=== PATIENT | female | born 1995 | race Caucasian/White ===

== ENCOUNTER 2021-05-29 23:06 | Emergency (ER) | payer OTHER ==
[2021-05-29] MEDS ORDERED: PENICILLIN VK500 MG PO (23:20)
== END 2021-05-29 23:38 | disposition home or self-care (01) ==
LOC: ED 23:06
DX: K08.89 Other specified disorders of teeth and supporting structures (principal)

== ENCOUNTER 2021-08-20 09:29 | Emergency (ER) | payer OTHER ==
[~2021-08-20] VITALS: Ht 154.9 cm; Wt 49.9 kg
[~2021-08-20 09:29] MED LIST: PENICILLIN VK500 MG PO
[2021-08-20] MEDS ORDERED: MUCINEX DM 30/61 TAB PO (10:05)
== END 2021-08-20 10:08 | disposition home or self-care (01) ==
LOC: ED 09:29
DX: R05.9 Cough, unspecified (principal); Z20.822 Contact with and (suspected) exposure to COVID-19; R09.89 Other specified symptoms and signs involving the circulatory and respiratory systems; J02.9 Acute pharyngitis, unspecified

== ENCOUNTER 2022-02-24 10:04 | Emergency (ER) | payer OTHER ==
[~2022-02-24] VITALS: Ht 154.9 cm; Wt 45.4 kg
[~2022-02-24 10:04] MED LIST changes: +MUCINEX DM 30/61 TAB PO
[2022-02-24] MEDS ORDERED: IBUPROFEN600 MG PO (14:07)
== END 2022-02-24 15:06 | disposition home or self-care (01) ==
LOC: ED 10:04
DX: M25.561 Pain in right knee (principal)

== ENCOUNTER 2022-10-14 18:40 | Emergency (ER) | payer OTHER ==
[~2022-10-14] VITALS: Ht 162.5 cm; Wt 52.2 kg
[~2022-10-14 18:40] MED LIST changes: +IBUPROFEN600 MG PO
[2022-10-14 19:50] LABS: BASO % 0.5 % (0.0-1.0); EOS # 0.4 10*3/uL (0.0-0.4); EOS % 4.1 % (1.0-4.0); HEMATOCRIT 37.9 % (37.0-47.0); LYMPH # 2.5 10*3/uL (1.3-4.4); LYMPH % 28.4 % (27.0-41.0); MEAN CELL VOLUME 92.7 fl (81.0-99.0); MEAN CORPUSCULAR HGB 31.8 pg (27.0-31.0); MEAN CORPUSCULAR HGB CONC 34.3 g/dl (33.0-37.0); MEAN PLATELET VOLUME 10.6 fl (9.6-12.3); MONO # 0.6 10*3/uL (0.1-1.0); NEUT # 5.3 10*3/uL (2.3-7.9); NEUT % 59.8 % (47.0-73.0); PLATELET COUNT AUTOMATED 249 10*3/uL (130-400); RED BLOOD COUNT 4.09 10*6/uL (4.10-5.10); RED CELL DISTRI WIDTH 12.6 % (0-14.5); WHITE BLOOD COUNT 8.8 10*3/uL (4.8-10.8)
[2022-10-14 20:04] LABS: ALKALINE PHOSPHATASE 70 U/L (46-116); BUN 15 mg/dl (9-23); CHLORIDE 106 mmol/L (98-107); POTASSIUM 3.2 mmol/L (3.4-5.1); SGPT/ALT 10 U/L (10-49); TOTAL PROTEIN 7.1 gm/dL (6.0-8.0)
[2022-10-14 20:09] LABS: ACT PARTIAL THROMBO TIME 29.8 SECONDS (20.0-32.1)
== END 2022-10-14 23:28 | disposition home or self-care (01) ==
LOC: ED 18:40
PROVIDERS: Emergency Medicine
DX: R07.9 Chest pain, unspecified (principal); E16.2 Hypoglycemia, unspecified; E87.6 Hypokalemia; J45.909 Unspecified asthma, uncomplicated

== ENCOUNTER → 2023-03-16 | Outpatient (CLI) | payer OTHER | END | disposition home or self-care (01) | LOC: CT 15:51 | PROVIDERS: ATTEND Specialist | DX: J34.2 Deviated nasal septum (principal); J32.0 Chronic maxillary sinusitis; J34.89 Other specified disorders of nose and nasal sinuses ==

== ENCOUNTER 2023-09-29 09:48 | Emergency (ER) | payer OTHER ==
[~2023-09-29] VITALS: Ht 154.9 cm; Wt 52.6 kg
[2023-09-29] MEDS ORDERED: BUPRENORPHINE-1 EAC1 SL (09:56)
[2023-09-29] MEDS ORDERED: NEURONTIN300 MG PO (09:57)
[2023-09-29] MEDS ORDERED: CLARITHROMYCIN500 MG PO (09:57)
[2023-09-29] MEDS ORDERED: RISPERIDONE0.25 M2 PO (09:57)
[2023-09-29] MEDS ORDERED: BUSPIRONE HCL10 MG PO (09:57)
[2023-09-29] MEDS ORDERED: LAMOTRIGINE25 M1 PO (09:58)
[2023-09-29 10:13] LABS: BASO % 0.5 % (0.0-1.0); EOS # 0.1 10*3/uL (0.0-0.4); EOS % 1.2 % (1.0-4.0); HEMATOCRIT 40.2 % (37.0-47.0); LYMPH # 2.6 10*3/uL (1.3-4.4); LYMPH % 34.2 % (27.0-41.0); MEAN CELL VOLUME 93.1 fl (81.0-99.0); MEAN CORPUSCULAR HGB 30.6 pg (27.0-31.0); MEAN CORPUSCULAR HGB CONC 32.8 g/dl (33.0-37.0); MEAN PLATELET VOLUME 10.5 fl (9.6-12.3); MONO # 0.7 10*3/uL (0.1-1.0); MONO % 9.6 % (3.0-9.0); NEUT # 4.2 10*3/uL (2.3-7.9); NEUT % 54.4 % (47.0-73.0); PLATELET COUNT AUTOMATED 213 10*3/uL (130-400); RED BLOOD COUNT 4.32 10*6/uL (4.10-5.10); RED CELL DISTRI WIDTH 12.5 % (0-14.5); WHITE BLOOD COUNT 7.7 10*3/uL (4.8-10.8)
[2023-09-29 10:35] LABS: ALKALINE PHOSPHATASE 59 U/L (46-116); BUN 14 mg/dl (9-23); CHLORIDE 104 mmol/L (98-107); POTASSIUM 3.7 mmol/L (3.4-5.1); SGPT/ALT 8 U/L (5-49); TOTAL PROTEIN 7.4 gm/dL (6.0-8.0)
[2023-09-29 11:21] LABS: BILIRUBIN Negative (Negative); BLOOD Negative (Negative); CLARITY Clear (Clear); COLOR Yellow (Yellow); GLUCOSE Negative (Negative); KETONE Negative (Negative); LEUKO ESTERASE Negative (Negative); NITRITE Negative (Negative); SPECIFIC GRAVITY <= 1.005 (1.001-1.030); UROBILINOGEN 0.2 E.U./dl (0.0-1.0)
[2023-09-29 11:42] LABS: EPITHELIAL CELLS 0-2; WBC 0-2 wbc/hpf (0-5)
== END 2023-09-29 12:58 | disposition home or self-care (01) ==
LOC: ED 09:48
PROVIDERS: Internal Medicine
DX: O26.891 Other specified pregnancy related conditions, first trimester (principal); R10.84 Generalized abdominal pain; J45.909 Unspecified asthma, uncomplicated; Z3A.01 Less than 8 weeks gestation of pregnancy